=== PATIENT | female | born 1950 | race Caucasian/White ===

== ENCOUNTER 2020-12-21 18:17 | Emergency (ER) | payer BC, MEDICARE ==
[~2020-12-21] VITALS: Ht 152.4 cm; Wt 68.0 kg
[2020-12-21 18:28] VITALS: BP 134/72
--- NOTE | 2020-12-21 18:30 | NUR ---
[id number], from [facility], nose lac s/p unwitness fall, -loc, no blood thinner. Patient a/ox4, breathing even and unlabored, gauze on her nose, patient deneis losing consciousness after the fall.
[2020-12-21] MEDS ORDERED: BACI/NEOM/POLY B OINT PKT 1 UDPKT PACKET ONE (18:51)
[2020-12-21] MEDS ORDERED: TDAP [DIPH/PERTUSSIS/TET] 0.5 ML VIAL IM ONE ×2 (18:51→19:00)
[2020-12-21] MEDS ORDERED: LIDOCAINE HCL/MPF 1% 30 ML VIAL IJ ONE (18:51)
--- NOTE | 2020-12-21 18:52 | NUR ---
PATIENT TAKEN TO CT. POA AT BEDSIDE, UNSURE IF TDAP IS UP TO DATE.
[2020-12-21] MEDS ORDERED: BACI/NEOM/POLY B OINT PKT 1 UDPKT PACKET TP ONE (19:00)
[2020-12-21] MEDS ORDERED: LIDOCAINE HCL/PF 1% 30 ML VIAL TP ONE (19:00)
--- NOTE | 2020-12-21 19:10 | NUR ---
WOUND ON NOSE CLEANSED. DRIED BLOOD ON THE HEAD AND ARE HANDS ARE WIPED WITH WASHCLOTHS.
--- NOTE | 2020-12-21 19:27 | NUR ---
DR. FOX AT BEDSIDE FOR LAC REPAIR.
--- NOTE | 2020-12-21 19:41 | NUR ---
Tech at bedside for Cleaning of Nose
[2020-12-21] MEDS ORDERED: HYDR-3980 PO (19:52)
--- NOTE | 2020-12-21 20:01 | NUR ---
Patient and patient's power of transactional attorney is provided with Written and verbal after care instructions given. Patient and patient's power of transactional attorney verbalizes understanding of instruction.
--- NOTE | 2020-12-21 20:01 | NUR ---
[facility] ETA 15-25 MINUTES
--- NOTE | 2020-12-21 20:27 | NUR ---
REPORT GIVEN TO MARTINE[facility] STAFF AT [facility]
--- NOTE | 2020-12-21 20:37 | NUR ---
REPORT GIVEN TO [facility] TEAM FOR [facility]. AND TRANSFERRING RESPONSIBILITIES.
== END 2020-12-21 20:39 ==
LOC: ER 18:29
DX: S02.2XXA Fracture of nasal bones, initial encounter for closed fracture (principal); S01.21XA Laceration without foreign body of nose, initial encounter; I10 Essential (primary) hypertension; E78.5 Hyperlipidemia, unspecified; F32.9 Major depressive disorder, single episode, unspecified; F03.90 Unspecified dementia, unspecified severity, without behavioral disturbance, psychotic disturbance, mood disturbance, and anxiety; W19.XXXA Unspecified fall, initial encounter; Y93.89 Activity, other specified; Y92.89 Other specified places as the place of occurrence of the external cause; Y99.8 Other external cause status
CPT/HCPCS: 12011; 70450; 70486; 90471; 90715; 99285; A6403 ×2; J3490 ×2